=== PATIENT | female | born 1945 | race Two or more races ===

== ENCOUNTER 2019-05-20 09:31 | Outpatient (CLI) | payer OTHER | END 2019-05-21 09:02 | disposition home or self-care (01) | LOC: TOM 09:31 | DX: J43.8 Other emphysema (principal); R91.1 Solitary pulmonary nodule; F17.200 Nicotine dependence, unspecified, uncomplicated ==

== ENCOUNTER 2019-09-30 09:54 | Outpatient (CLI) | payer OTHER | END 2019-09-30 10:03 | disposition home or self-care (01) | LOC: MAMO-SONO 09:54 | PROVIDERS: ATTEND Internal Medicine Cardiovascular Disease | DX: Z12.31 Encounter for screening mammogram for malignant neoplasm of breast (principal); N64.59 Other signs and symptoms in breast ==

== ENCOUNTER 2019-09-30 12:23 | Outpatient (CLI) | payer OTHER | END 2019-09-30 12:24 | disposition home or self-care (01) | LOC: NUCLEAR 12:23 | PROVIDERS: ATTEND Internal Medicine Cardiovascular Disease | DX: M81.0 Age-related osteoporosis without current pathological fracture (principal); E55.9 Vitamin D deficiency, unspecified ==

== ENCOUNTER 2020-10-20 10:45 | Outpatient (CLI) | payer OTHER | END 2020-10-20 10:53 | disposition home or self-care (01) | LOC: TOM 10:45 | PROVIDERS: ATTEND Internal Medicine Pulmonary Disease | DX: R91.8 Other nonspecific abnormal finding of lung field (principal); J44.9 Chronic obstructive pulmonary disease, unspecified; F17.298 Nicotine dependence, other tobacco product, with other nicotine-induced disorders; F17.200 Nicotine dependence, unspecified, uncomplicated ==

== ENCOUNTER 2022-11-08 11:50 | Outpatient (CLI) | payer OTHER | END 2022-11-08 11:56 | disposition home or self-care (01) | LOC: TOM 11:50 | PROVIDERS: ATTEND Internal Medicine Pulmonary Disease | DX: M25.562 Pain in left knee (principal); R91.1 Solitary pulmonary nodule; J44.9 Chronic obstructive pulmonary disease, unspecified; Z87.891 Personal history of nicotine dependence ==

== ENCOUNTER 2023-10-10 08:43 | Outpatient (CLI) | payer OTHER | END 2023-10-10 08:55 | disposition home or self-care (01) | LOC: MAMO-SONO 08:43 | PROVIDERS: ATTEND Internal Medicine Pulmonary Disease | DX: J44.9 Chronic obstructive pulmonary disease, unspecified (principal); R91.1 Solitary pulmonary nodule; F17.200 Nicotine dependence, unspecified, uncomplicated; N60.11 Diffuse cystic mastopathy of right breast; N60.12 Diffuse cystic mastopathy of left breast; Z12.31 Encounter for screening mammogram for malignant neoplasm of breast ==